=== PATIENT | male | born 1940 | race Two or more races ===

== ENCOUNTER 2022-04-01 13:05 | Inpatient (IN) | payer MEDICARE, MEDICAID ==
[~2022-04-01] VITALS: Ht 170.2 cm; Wt 71.0 kg
[2022-04-01 13:30] LABS: BASOPHILS % (AUTO) 0.1 % (0.0-2.0); EOSINOPHILS % (AUTO) 0 % (1.0-6.0); HEMATOCRIT 41.6 % (41-53); HEMOGLOBIN 13.8 g/dL (13.5-17.5); LYMPHOCYTES # (AUTO) 1.7 K/uL (1.0-4.8); LYMPHOCYTES % (AUTO) 13.4 % (22.0-44.0); MEAN CORPUSCULAR HEMOGLOBIN 30.3 pg (26.0-34.0); MEAN CORPUSCULAR HGB CONC 33.2 G/dL (31.0-37.0); MEAN CORPUSCULAR VOLUME 91 fL (80-100); NEUTROPHILS # (AUTO) 9.7 K/uL (1.8-7.7); NEUTROPHILS % (AUTO) 78.5 % (40.0-70.0); PLATELET COUNT (AUTO) 347 K/uL (150-450); RED BLOOD CELL COUNT(AUTO) 4.57 MIL/uL (4.50-5.90)
[2022-04-01] MEDS ORDERED: ACETAMINOPHEN 1000 MG/ISO-OSM 100 ML IV ONE (13:30)
[2022-04-01] MEDS ORDERED: SODIUM CHLORIDE 0.9% 1,000 ML IV ONE ×2 (13:30→14:45)
[2022-04-01] MEDS ORDERED: BISA-151 PO (13:31)
[2022-04-01] MEDS ORDERED: INSREG SQ (13:31)
[2022-04-01] MEDS ORDERED: BACL10TA PO (13:31)
[2022-04-01] MEDS ORDERED: ENAL-91 PO (13:31)
[2022-04-01] MEDS ORDERED: DONE-52 PO (13:31)
[2022-04-01] MEDS ORDERED: METF-1211 PO (13:31)
[2022-04-01] MEDS ORDERED: ASCO500T19 PO (13:31)
[2022-04-01] MEDS ORDERED: TAMS-13 PO (13:31)
[2022-04-01] MEDS ORDERED: PIOG30TA10 PO (13:31)
[2022-04-01] MEDS ORDERED: ATOR10TA84 PO (13:31)
[2022-04-01] MEDS ORDERED: INSLAN SQ (13:31)
[2022-04-01] MEDS ORDERED: GABA-1181 PO (13:31)
[2022-04-01] MEDS ORDERED: ASPI-1450 PO (13:31)
[2022-04-01 13:45] LABS: ALANINE AMINOTRANSFERASE 28 U/L (12-78); ALBUMIN 3.7 g/dL (3.4-5.0); ALKALINE PHOSPHATASE 93 U/L (46-116); ANION GAP 12 mmol/L (8-16); ASPARTATE AMINOTRANSFERASE 15 U/L (15-37); BILIRUBIN,TOTAL 1.5 mg/dL (0.1-1.0); CALCIUM, TOTAL 9.8 mg/dL (8.8-10.5); CARBON DIOXIDE 26 mmol/L (22-29); CHLORIDE 101 mmol/L (98-107); CREATINE KINASE, TOTAL ONLY 27 U/L (39-308); CREATININE 0.85 mg/dL (0.60-1.30); POTASSIUM 4.2 mmol/L (3.5-5.1); SODIUM SERUM 139 mmol/L (136-145); TOTAL PROTEIN, SERUM 8.3 g/dL (6.4-8.2); UREA NITROGEN, BLOOD 26 mg/dL (7-18)
[2022-04-01 13:46] LABS: GLOMERULAR FILTR. RATE CALC > 60 mL/min (>60); GLUCOSE,RANDOM 451 mg/dL (70-110)
[2022-04-01 14:00] LABS: AMMONIA < 10 umol/L (11-32)
[2022-04-01] MEDS ORDERED: INSULIN REGULAR, HUMAN 100 UNITS/ML IVP ONE (14:00)
[2022-04-01 14:05] LABS: COVID AG,FIA SOURCE NASOPHARYNGEAL
[2022-04-01 14:12] LABS: APPEARANCE,URINE CLEAR (CLEAR); BILIRUBIN,URINE NEGATIVE (NEGATIVE); GLUCOSE, URINE (UA) >=1000 mg/dL (NEGATIVE); KETONES,URINE 80-100 mg/dL (NEGATIVE); LEUKOCYTE ESTERASE ,URINE TRACE (NEGATIVE); NITRATE,URINE POSITIVE (NEGATIVE); OCCULT BLOOD,URINE MODERATE (NEGATIVE); PROTEIN,URINE NEGATIVE (NEGATIVE); SPECIFIC GRAVITIY, URINE 1.037 (1.003-1.030); UROBILINOGEN,URINE <=1.0 mg/dL (<=1.0)
[2022-04-01 14:18] LABS: AMPHET/METH SCREEN,URINE NEGATIVE (NEGATIVE); BARBITURATE SCREEN, URINE NEGATIVE (NEGATIVE); BENZODIAZEPINES SCREEN,URINE NEGATIVE (NEGATIVE); CANNABINOID SCREEN,URINE NEGATIVE (NEGATIVE); COCAINE SCREEN,URINE NEGATIVE (NEGATIVE); METHADONE SCREEN, URINE NEGATIVE (NEGATIVE); OPIATE SCREEN,URINE NEGATIVE (NEGATIVE); WBC,URINE 0-2 /HPF (0-5)
[2022-04-01 14:19] LABS: BACTERIA,URINE Moderate /HPF (None Seen); PHENCYCLIDINE SCREEN,URINE NEGATIVE (NEGATIVE); YEAST,URINE Moderate /HPF (None Seen)
[2022-04-01] MEDS ORDERED: CefTRIAXone 1 GM/DEXTROSE 50 ML IV ONE (14:30)
[2022-04-01] MEDS ORDERED: ONDANSETRON HCL 4 MG/2 ML VIAL IVP PRN ×2 (14:45→18:30)
[2022-04-01] MEDS ORDERED: ACETAMINOPHEN 325 MG TABLET PO PRN ×2 (14:45→18:30)
[2022-04-01 16:26] LABS: GLUCOSE,POINT OF CARE 304 MG/DL (70-110)
[2022-04-01 17:43] VITALS: BP 139/69
[2022-04-01] MEDS ORDERED: BISACODYL 10 MG RECTAL RECTAL SUPPOSITORY PR PRN (18:30)
[2022-04-01] MEDS ORDERED: MORPHINE SULFATE 2 MG/ML SYRINGE IVP PRN (18:30)
[2022-04-01] MEDS ORDERED: ZOLPIDEM TARTRATE 5 MG TABLET PO PRN (18:30)
[2022-04-01] MEDS ORDERED: MAGNESIUM HYDROXIDE SUSPENSION 30 ML UDCUP PO PRN (18:30)
[2022-04-01] MEDS ORDERED: DEXTROSE 50%-WATER 25 GM/50 ML SYRINGE IVP PRN (18:30)
[2022-04-01] MEDS ORDERED: SODIUM CHLORIDE 0.9% 500 ML IV ONE (18:30)
[2022-04-01] MEDS: INSULIN LISPRO 100 UNITS/ML SQ PRN (18:44)
[2022-04-01 19:40] VITALS: BP 127/64
[2022-04-01 20:26] LABS: GLUCOMETER DEV NAME(LOC) 5N.1C; GLUCOSE,POINT OF CARE 271 MG/DL (70-110)
[2022-04-01] MEDS: CefTRIAXone 1 GM/DEXTROSE 50 ML IV SCH (21:47)
[2022-04-01] MEDS: ENALAPRIL MALEATE 20 MG TABLET PO SCH (21:48)
[2022-04-01] MEDS: TAMSULOSIN HCL 0.4 MG CAPSULE PO SCH (21:49)
[2022-04-01] MEDS: DONEPEZIL HCL 5 MG TABLET PO SCH (21:49)
[2022-04-01] MEDS: DOCUSATE SODIUM 100 MG CAPSULE PO SCH (21:49)
[2022-04-01] MEDS: ATORVASTATIN CALCIUM 10 MG TABLET PO SCH (21:49)
[2022-04-01] MEDS: HEPARIN SODIUM,PORCINE 5,000 UNITS/ML VIAL SQ SCH (21:50)
[2022-04-01 23:40] VITALS: BP 118/61
[2022-04-02] MEDS: INSULIN LISPRO 100 UNITS/ML SQ PRN ×5 (00:41→20:43)
[2022-04-02 00:45] LABS: GLUCOMETER DEV NAME(LOC) 5N.1C; GLUCOSE,POINT OF CARE 255 MG/DL (70-110)
[2022-04-02 03:50] VITALS: BP 150/75
[2022-04-02] MEDS: HYDROCODONE/ACETAMINOPHEN 5-325 MG TABLET PO PRN ×2 (06:07→10:30)
[2022-04-02 06:17] LABS: GLUCOMETER DEV NAME(LOC) 5S.1B; GLUCOSE,POINT OF CARE 242 MG/DL (70-110)
[2022-04-02 07:13] LABS: BASOPHILS % (AUTO) 0.3 % (0.0-2.0); EOSINOPHILS % (AUTO) 0.1 % (1.0-6.0); HEMATOCRIT 36.9 % (41-53); HEMOGLOBIN 12.4 g/dL (13.5-17.5); LYMPHOCYTES # (AUTO) 1.3 K/uL (1.0-4.8); LYMPHOCYTES % (AUTO) 14.4 % (22.0-44.0); MEAN CORPUSCULAR HEMOGLOBIN 30.4 pg (26.0-34.0); MEAN CORPUSCULAR HGB CONC 33.6 G/dL (31.0-37.0); MEAN CORPUSCULAR VOLUME 91 fL (80-100); MONOCYTES # (AUTO) 0.9 K/uL (0.1-1.0); MONOCYTES % (AUTO) 10.2 % (2.0-9.0); NEUTROPHILS # (AUTO) 6.9 K/uL (1.8-7.7); PLATELET COUNT (AUTO) 273 K/uL (150-450); RED BLOOD CELL COUNT(AUTO) 4.08 MIL/uL (4.50-5.90); RED CELL DISTRIBUTION WIDTH 14.5 % (11.5-14.5)
[2022-04-02 07:20] LABS: ANION GAP 8 mmol/L (8-16); CALCIUM, TOTAL 8.8 mg/dL (8.8-10.5); CARBON DIOXIDE 27 mmol/L (22-29); CHLORIDE 104 mmol/L (98-107); CREATININE 0.52 mg/dL (0.60-1.30); GLUCOSE,RANDOM 242 mg/dL (70-110); POTASSIUM 3.4 mmol/L (3.5-5.1); SODIUM SERUM 139 mmol/L (136-145); UREA NITROGEN, BLOOD 20 mg/dL (7-18)
[2022-04-02 07:23] LABS: HEMOGLOBIN A1C 8.7 % (3.8-5.6)
[2022-04-02 07:24] LABS: GLOMERULAR FILTR. RATE CALC > 60 mL/min (>60)
[2022-04-02 07:31] VITALS: BP 136/71
[2022-04-02] MEDS: DOCUSATE SODIUM 100 MG CAPSULE PO SCH ×2 (09:00→21:00)
[2022-04-02] MEDS: TAMSULOSIN HCL 0.4 MG CAPSULE PO SCH ×2 (09:58→20:41)
[2022-04-02] MEDS: PANTOPRAZOLE SODIUM 40 MG DR TABLET PO SCH (09:58)
[2022-04-02] MEDS: DONEPEZIL HCL 5 MG TABLET PO SCH (09:58)
[2022-04-02] MEDS: ENALAPRIL MALEATE 20 MG TABLET PO SCH ×2 (09:58→20:41)
[2022-04-02] MEDS: ASPIRIN 81 MG CHEWABLE TABLET PO SCH (09:59)
[2022-04-02] MEDS: HEPARIN SODIUM,PORCINE 5,000 UNITS/ML VIAL SQ SCH ×2 (09:59→18:02)
[2022-04-02] MEDS ORDERED: POTASSIUM CHLORIDE 20 MEQ ER TABLET PO PRN (10:00)
[2022-04-02 12:10] VITALS: BP 144/86
[2022-04-02 16:16] VITALS: BP 130/63
[2022-04-02] MEDS: CefTRIAXone 1 GM/DEXTROSE 50 ML IV SCH (18:04)
[2022-04-02 19:15] VITALS: BP 140/69
[2022-04-02] MEDS: ATORVASTATIN CALCIUM 10 MG TABLET PO SCH (20:41)
[2022-04-02] MEDS: POTASSIUM CHL 10 MEQ/WATER 50 ML IV PRN ×2 (20:43→22:58)
[2022-04-02 23:35] VITALS: BP 133/74
[2022-04-03] MEDS: DONEPEZIL HCL 5 MG TABLET PO SCH (00:25)
[2022-04-03] MEDS: POTASSIUM CHL 10 MEQ/WATER 50 ML IV PRN (00:25)
[2022-04-03] MEDS: HEPARIN SODIUM,PORCINE 5,000 UNITS/ML VIAL SQ SCH ×3 (00:26→16:26)
[2022-04-03 03:45] VITALS: BP 130/60
[2022-04-03] MEDS: INSULIN LISPRO 100 UNITS/ML SQ PRN ×3 (06:12→20:15)
[2022-04-03 07:08] VITALS: BP 158/74
[2022-04-03 07:16] LABS: BASOPHILS % (AUTO) 0.3 % (0.0-2.0); EOSINOPHILS % (AUTO) 0.2 % (1.0-6.0); HEMATOCRIT 34.9 % (41-53); HEMOGLOBIN 11.7 g/dL (13.5-17.5); LYMPHOCYTES # (AUTO) 2.3 K/uL (1.0-4.8); MEAN CORPUSCULAR HEMOGLOBIN 30.4 pg (26.0-34.0); MEAN CORPUSCULAR HGB CONC 33.6 G/dL (31.0-37.0); MEAN CORPUSCULAR VOLUME 91 fL (80-100); MONOCYTES # (AUTO) 0.8 K/uL (0.1-1.0); MONOCYTES % (AUTO) 9.9 % (2.0-9.0); NEUTROPHILS # (AUTO) 4.6 K/uL (1.8-7.7); NEUTROPHILS % (AUTO) 59.6 % (40.0-70.0); PLATELET COUNT (AUTO) 272 K/uL (150-450); RED BLOOD CELL COUNT(AUTO) 3.85 MIL/uL (4.50-5.90); RED CELL DISTRIBUTION WIDTH 14.4 % (11.5-14.5)
[2022-04-03 07:28] LABS: ANION GAP 11 mmol/L (8-16); CALCIUM, TOTAL 8.8 mg/dL (8.8-10.5); CARBON DIOXIDE 25 mmol/L (22-29); CHLORIDE 101 mmol/L (98-107); CREATININE 0.57 mg/dL (0.60-1.30); GLUCOSE,RANDOM 369 mg/dL (70-110); POTASSIUM 3.8 mmol/L (3.5-5.1); SODIUM SERUM 137 mmol/L (136-145); UREA NITROGEN, BLOOD 17 mg/dL (7-18)
[2022-04-03 07:31] LABS: GLOMERULAR FILTR. RATE CALC > 60 mL/min (>60)
[2022-04-03] MEDS: TAMSULOSIN HCL 0.4 MG CAPSULE PO SCH ×2 (08:08→20:07)
[2022-04-03] MEDS: DOCUSATE SODIUM 100 MG CAPSULE PO SCH ×2 (08:08→20:06)
[2022-04-03] MEDS: HYDROCODONE/ACETAMINOPHEN 5-325 MG TABLET PO PRN (08:08)
[2022-04-03] MEDS: PANTOPRAZOLE SODIUM 40 MG DR TABLET PO SCH (08:10)
[2022-04-03] MEDS: ENALAPRIL MALEATE 20 MG TABLET PO SCH ×2 (08:10→20:06)
[2022-04-03] MEDS: ASPIRIN 81 MG CHEWABLE TABLET PO SCH (08:10)
[2022-04-03 10:52] VITALS: BP 142/72
[2022-04-03] MEDS ORDERED: CEPH-558 PO (12:25)
[2022-04-03 14:59] VITALS: BP 121/56
[2022-04-03] MEDS: CefTRIAXone 1 GM/DEXTROSE 50 ML IV SCH (17:54)
[2022-04-03 19:57] VITALS: BP 141/73
[2022-04-03] MEDS: ATORVASTATIN CALCIUM 10 MG TABLET PO SCH (20:07)
[2022-04-05 05:32] LABS: GLUCOMETER DEV NAME(LOC) 5N.1C; GLUCOSE,POINT OF CARE 249 MG/DL (70-110)
[2022-04-05 05:32] LABS: GLUCOMETER DEV NAME(LOC) 5N.1C; GLUCOSE,POINT OF CARE 375 MG/DL (70-110)
[2022-04-05 05:32] LABS: GLUCOMETER DEV NAME(LOC) 5N.1C; GLUCOSE,POINT OF CARE 297 MG/DL (70-110)
[2022-04-05 06:32] LABS: GLUCOMETER DEV NAME(LOC) 5N.3; GLUCOSE,POINT OF CARE 341 MG/DL (70-110)
[2022-04-05 08:26] LABS: GLUCOMETER DEV NAME(LOC) 5S.1B; GLUCOSE,POINT OF CARE 343 MG/DL (70-110)
[2022-04-05 08:26] LABS: GLUCOMETER DEV NAME(LOC) 5S.1B; GLUCOSE,POINT OF CARE 423 MG/DL (70-110)
== END 2022-04-03 22:45 | disposition home or self-care (01) | DRG 637 ==
LOC: EMS 13:05 → 5S 15:15
PROVIDERS: ADMIT Internal Medicine; ATTEND Internal Medicine
DX: E11.00 Type 2 diabetes mellitus with hyperosmolarity without nonketotic hyperglycemic-hyperosmolar coma (NKHHC) (principal); G93.41 Metabolic encephalopathy; N39.0 Urinary tract infection, site not specified; E78.5 Hyperlipidemia, unspecified; E11.65 Type 2 diabetes mellitus with hyperglycemia; I10 Essential (primary) hypertension; E78.00 Pure hypercholesterolemia, unspecified; F03.90 Unspecified dementia, unspecified severity, without behavioral disturbance, psychotic disturbance, mood disturbance, and anxiety; N40.0 Benign prostatic hyperplasia without lower urinary tract symptoms; Z20.822 Contact with and (suspected) exposure to COVID-19; E11.40 Type 2 diabetes mellitus with diabetic neuropathy, unspecified; Z90.49 Acquired absence of other specified parts of digestive tract; Z79.82 Long term (current) use of aspirin; Z79.4 Long term (current) use of insulin; Z79.84 Long term (current) use of oral hypoglycemic drugs; Z79.899 Other long term (current) drug therapy; Z87.891 Personal history of nicotine dependence
CPT/HCPCS: 51702; 70450; 71045; 80048; 80053; 81001; 82140; 82550; 82962; 83036; 83605; 84484; 85025; 87040; 87086; 92610; 93005; 99291; G0480; J0131; J0696; J1644; J1815; J3480; J7030; 36415-L1; 36415-TC